=== PATIENT | male | born 1990 | race Caucasian/White ===

== ENCOUNTER → 2024-06-30 | Outpatient (CLI) | payer SELFPAY ==
--- NOTE | 2024-06-30 14:37 | VDLE_ITS ---
Reason For Study: Left leg swelling Procedure LEFT This is a venous duplex using B-mode, color CFV is compressible, spontaneous, phasic, flow and spectral Doppler. competent, and demonstrates normal Exam performed in department. augmentation. A preliminary report was called and/or faxed FV is compressible, spontaneous, phasic, to Sindy QUARLES. competent and demonstrates normal augmentation. POP V is compressible, spontaneous, phasic, competent and demonstrates normal augmentation. T/P Trunk is compressible. PTV is compressible. LT PerV is compressible. Acute superficial vein thrombosis is noted in the left GSV from the knee to ankle. Thrombus filled varicose veins noted in the left mid thigh to prox calf. Unable to asses GSV below knee due to thrombus. SFJ is competent and measures 0.80 x 0.80 cm. GSV proximal thigh measures 0.44 x 0.52 cm. GSV above knee is INCOMPETENT for greater than 0.5 seconds. SSV proximal calf is competent and measures 0.30 x 0.27 cm. VL/Venous Duplex US, Unilateral Interpretation Summary Acute superficial vein thrombosis noted in the left great saphenous vein in the calf and associated varicosities. Deep veins of the left lower extremity are patent and compressible segmentally. There is no evidence of left lower extremity deep vein thrombosis. Positive for reflux in the left great saphenous vein above the knee. Ordering Physician: Sindy Conley Performed By: Shreya Baker RVT
== END | disposition home or self-care (01) ==
LOC: CVS 14:33
PROVIDERS: Referring Provider Physician Assistant; Visit Provider Physician Assistant
DX: I82.812 Embolism and thrombosis of superficial veins of left lower extremity (principal)
CPT/HCPCS: 93971